=== PATIENT | female | born 1940 | race Caucasian/White ===

== ENCOUNTER 2019-02-25 12:07 | Emergency (ER) | payer MEDICARE, MEDICAID | END 2019-02-25 13:16 | disposition home or self-care (01) | LOC: MADERS 12:07 | DX: B02.9 Zoster without complications (principal); I49.9 Cardiac arrhythmia, unspecified; I48.91 Unspecified atrial fibrillation; Z79.899 Other long term (current) drug therapy; Z79.01 Long term (current) use of anticoagulants ==

== ENCOUNTER 2019-03-12 11:40 | Outpatient (CLI) | payer MEDICARE, MEDICAID | END 2019-03-12 11:41 | disposition home or self-care (01) | LOC: MADER/OP 11:40 | PROVIDERS: ATTEND Internal Medicine Infectious Disease | DX: E05.90 Thyrotoxicosis, unspecified without thyrotoxic crisis or storm (principal) | CPT/HCPCS: 36415; 84439; 84443; 84445 ==

== ENCOUNTER 2019-06-09 15:45 | Outpatient (CLI) | payer MEDICARE, MEDICAID ==
[2019-06-09 17:08] LABS: ALT (SGPT) 17 U/L (8-55); AST (SGOT) 22 U/L (5-34); Alkaline Phosphatase 108 U/L (40-110); Anion Gap 14 mmol/L (10-20); BUN (Urea Nitrogen) 16 mg/dL (9.8-20.1); Bilirubin, Total 0.9 mg/dL (0.2-1.2); Calc. Creatinine Clearance 0 mL/min (70-130); Calcium 9.2 mg/dL (7.8-10.44); Carbon Dioxide 28 mmol/L (23-31); Chloride 104 mmol/L (98-107); Estimated GFR-MDRD 60; Globulin 2.6 g/dL (2.4-3.5); Glucose 69 mg/dL (83-110); Potassium 4.2 mmol/L (3.5-5.1); Protein, Total 6.6 g/dL (6.0-8.3); Sodium 142 mmol/L (136-145)
[2019-06-09 17:25] LABS: Thyroid Stimulating Hormone 5.9037 uIU/mL (0.35-4.94)
[2019-06-09 18:44] LABS: Anisocytosis SLIGHT = 6-15 cells (100X) (0-5/hpf); Band 7 % (5-11); Eosinophils 1 % (0-10); Hemoglobin 12.9 g/dL (12.0-16.0); Hypochromia SLIGHT = 6-15 cells (100X) (0-5/hpf); Lymphocytes 15 % (21-51); MDiff Complete? YES; Mean Corpuscular HGB CONC 28.6 g/dL (32.0-36.0); Mean Corpuscular Hemoglobin 25.2 pg (27.0-31.0); Mean Corpuscular Volume 88.1 fL (78.0-98.0); Monocytes 5 % (0-10); Neutrophil 71 % (42-75); Platelet Count 422 thou/uL (130-400); Platelet Morphology Comment Appears Increased; RBC Distribution Width 19.9 % (11.5-14.5); Red Blood Cell (RBC) Count 5.11 mill/uL (4.20-5.40); Schistocytes SLIGHT = 2-5 cells (100X) (0-1/hpf); Target Cells SLIGHT = 2-5 cells (100X) (0-1/hpf); Tear Drops SLIGHT = 2-5 cells (100X) (0-1/hpf); White Blood Cell (WBC) Count 33.9 thou/uL (4.8-10.8)
[2019-06-09 22:28] LABS: Free T4 (Free Thyroxine) 0.8 ng/dL (0.70-1.48)
== END 2019-06-09 15:46 | disposition home or self-care (01) ==
LOC: MADLAB 15:45
PROVIDERS: ATTEND Internal Medicine Endocrinology, Diabetes & Metabolism
DX: E05.90 Thyrotoxicosis, unspecified without thyrotoxic crisis or storm (principal)
CPT/HCPCS: 36415; 80053; 84439; 84443; 84445; 85025

== ENCOUNTER 2019-09-22 12:37 | Emergency (ER) | payer MEDICARE, MEDICAID ==
--- NOTE | 2019-09-22 13:19 | CT ---
CT BRAIN NONCONTRAST: DATE: 09/22/2019 HISTORY: 79-year-old female status post acute head trauma from fall FINDINGS: There is no evidence of acute intra-axial or extra-axial hemorrhage. There is no midline shift or any other mass effect. There is no extra-axial fluid collection. There is no evidence of obstructive hydrocephalus. Calvarium is intact. IMPRESSION: 1. No acute intracranial findings. 2. Acute, traumatic small focal superficial soft tissue hematoma of the forehead. 3. Severe osteoarthrosis of bilateral temporomandibular joints.
--- NOTE | 2019-09-22 13:26 | RAD ---
Exam:2 views right hip HISTORY: Fall. Pain. COMPARISON: None FINDINGS: Calcification of the pelvis may represent phleboliths and/or calcified uterine leiomyomas Visualized bony pelvis and sacrum are intact Minimal vascular calcifications Mild loss of the right hip joint space height. Contour of the femoral head is maintained. No fracture . IMPRESSION: No fracture.
[2019-09-22 13:52] LABS: PTT 39.4 sec (22.9-36.1)
[2019-09-22 13:59] LABS: Anion Gap 15 mmol/L (10-20); BUN (Urea Nitrogen) 18 mg/dL (9.8-20.1); Calc. Creatinine Clearance 0 mL/min (70-130); Calcium 8.6 mg/dL (7.8-10.44); Carbon Dioxide 28 mmol/L (23-31); Chloride 106 mmol/L (98-107); Estimated GFR-MDRD 50; Glucose 92 mg/dL (83-110); Hemoglobin 13.4 g/dL (12.0-16.0); Mean Corpuscular Hemoglobin 25.8 pg (27.0-31.0); Mean Corpuscular Volume 88.8 fL (78.0-98.0); Platelet Count 564 thou/uL (130-400); Potassium 3.8 mmol/L (3.5-5.1); RBC Distribution Width 17.9 % (11.5-14.5); Red Blood Cell (RBC) Count 5.19 mill/uL (4.20-5.40); Sodium 145 mmol/L (136-145); White Blood Cell (WBC) Count 23.8 thou/uL (4.8-10.8)
[2019-09-22 14:00] LABS: Anisocytosis SLIGHT = 6-15 cells (100X) (0-5/hpf); Eosinophils 1 % (0-10); Lymphocytes 5 % (21-51); MDiff Complete? YES; Monocytes 2 % (0-10); Neutrophil 85 % (42-75); Platelet Morphology Comment Appears Increased; Polychromasia SLIGHT = 2-3 cells (100X) (0-2/hpf); Reactive Lymphocytes 7 % (0-10)
--- NOTE | 2019-09-22 14:50 | RAD ---
SINGLE VIEW OF THE PELVIS: 09/22/19 COMPARISON: None. HISTORY: Fall with pelvic pain. FINDINGS: Single view of the pelvis shows no evidence of acute fracture or dislocation. No significant degenera tive changes are seen. Calcification in the pelvis may represent calcified fibroids. Degenerative arnoldo nges are seen in the lumbar spine. IMPRESSION: No evidence of acute osseous abnormality. POS: [facility]
--- NOTE | 2019-09-22 14:54 | RAD ---
THREE VIEWS RIGHT FOOT: COMPARISON: None. HISTORY: Fall with right foot pain. FINDINGS: Three views right foot show an oblique fracture to the mid portion of the 5th metatarsal with overlyi ng soft tissue swelling. There is also a questionable lucency of the distal aspect of the 4th metata rsal. No other fractures or dislocations are seen. IMPRESSION: Fifth metatarsal fracture with possible 4th metatarsal fracture. POS: [facility]
== END 2019-09-22 14:35 | disposition home or self-care (01) ==
LOC: MADERS 12:37
DX: S92.341A Displaced fracture of fourth metatarsal bone, right foot, initial encounter for closed fracture (principal); S92.351A Displaced fracture of fifth metatarsal bone, right foot, initial encounter for closed fracture; S00.83XA Contusion of other part of head, initial encounter; S90.01XA Contusion of right ankle, initial encounter; S90.121A Contusion of right lesser toe(s) without damage to nail, initial encounter; I48.91 Unspecified atrial fibrillation; E78.5 Hyperlipidemia, unspecified; Z79.899 Other long term (current) drug therapy; W18.30XA Fall on same level, unspecified, initial encounter
CPT/HCPCS: 36415; 70450; 72170; 80048; 85025; 85610; 85730

== ENCOUNTER 2020-02-17 12:34 | Emergency (ER) | payer MEDICARE, MEDICAID ==
[2020-02-17 13:08] LABS: #Basophils 0.1 thou/uL (0.0-0.2); #Eosinphils 0.2 thou/uL (0.0-0.7); #Monocytes 0.7 thou/uL (0.11-0.59); #Neutrophils 4.1 thou/uL (1.40-6.50); %Basophils 1.1 % (0.0-1.0); %Eosinophils 3.5 % (0.0-10.0); %Lymphocytes 16.2 % (21.0-51.0); %Monocytes 12.2 % (0.0-10.0); Anisocytosis SLIGHT = 6-15 cells (100X) (0-5/hpf); Elliptocytes SLIGHT = 2-5 cells (100X) (0-1/hpf); Hemoglobin 12.3 g/dL (12.0-16.0); MDiff Complete? YES; Macrocytosis SLIGHT = 6-15 cells (100X) (0-5/hpf); Mean Corpuscular Hemoglobin 30.6 pg (27.0-31.0); Mean Corpuscular Volume 98.7 fL (78.0-98.0); Mean Platelet Volume 9.5 fL (7.4-10.4); Microcytosis SLIGHT = 6-15 cells (100X) (0-5/hpf); Platelet Count 132 thou/uL (130-400); Platelet Morphology Comment Appears Adequate; RBC Distribution Width 18.9 % (11.5-14.5); Red Blood Cell (RBC) Count 4.03 mill/uL (4.20-5.40); White Blood Cell (WBC) Count 6.1 thou/uL (4.8-10.8)
[2020-02-17 13:12] LABS: INR-International Normal Ratio 2.4; Prothrombin Time 26.3 sec (12.0-14.7)
[2020-02-17 13:13] LABS: PTT 36.6 sec (22.9-36.1)
[2020-02-17] MEDS ORDERED: Boostrix 0.5 ML (Tdap) VIAL ONE (13:22)
--- NOTE | 2020-02-17 13:22 | CT ---
EXAM: CT cervical spine PROVIDED CLINICAL HISTORY: Fall with face trauma COMPARISON: CT chest abdomen and pelvis 02/22/2019 FINDINGS: No evidence for fracture or traumatic subluxation. No prevertebral soft tissue swelling apparent. Gr oundglass nodules in the right lung apex are stable with respect to prior. Vascular calcifications are seen. Prominent bilateral TMJ arthrosis. IMPRESSION: No evidence for fracture or traumatic subluxation.
[2020-02-17 13:23] LABS: ALT (SGPT) 13 U/L (8-55); AST (SGOT) 21 U/L (5-34); Albumin 3.5 g/dL (3.4-4.8); Alkaline Phosphatase 88 U/L (40-110); Anion Gap 12 mmol/L (10-20); BUN (Urea Nitrogen) 14 mg/dL (9.8-20.1); Bilirubin, Total 1.2 mg/dL (0.2-1.2); Calc. Creatinine Clearance 0 mL/min (70-130); Calcium 8.1 mg/dL (7.8-10.44); Carbon Dioxide 34 mmol/L (23-31); Chloride 99 mmol/L (98-107); Estimated GFR-MDRD 63; Globulin 2.3 g/dL (2.4-3.5); Glucose 100 mg/dL (83-110); Potassium 3.4 mmol/L (3.5-5.1); Protein, Total 5.8 g/dL (6.0-8.3); Sodium 142 mmol/L (136-145)
--- NOTE | 2020-02-17 14:23 | CT ---
EXAM: FACIAL BONE CT SCAN WITHOUT IV CONTRAST: 02/17/20 HISTORY: Trauma to face following injury from a fall. FINDINGS: There is some focal right sided frontal scalp hematoma changes. The sinuses appear clear without evid ence for significant mucosal disease or air fluid level. The orbits, face including the zygomatic arc hes and mandible unremarkable without acute fracture or dislocation. There is fairly severe arthrosis changes of both temporomandibular joints with a somewhat anterior displaced very flattened deformed left mandibular head. IMPRESSION: No acute facial fracture or other significant acute process. POS: [facility]
[2020-02-17 14:29] LABS: Bilirubin Negative (Negative); Blood, Urine Moderate (Negative); Clarity Cloudy (Clear); Glucose, Urine (Dipstick) Negative (Negative); Ketone, Urine Negative (Negative); Leukocyte Small (Negative); Nitrite Positive (Negative); Protein, Urine (Dipstick) 30 mg/dL (Neg-Trace); Urobilinogen 0.2 mg/dL (Less than 2)
--- NOTE | 2020-02-17 14:36 | CT ---
EXAM: BRAIN CT WITHOUT IV CONTRAST: 02/17/20 HISTORY: Injury from a fall with face trauma. COMPARISON: 09/22/19. FINDINGS: There is bilateral atrophy and chronic white matter ischemic changes. Fairly prominent focal right fr ontal hematoma. Sinuses and mastoids are clear of acute process. No intracranial mass or bleed. There is [id number] asymmetry because of patient head position. IMPRESSION: Atrophy and chronic white matter ischemic changes. Right frontal scalp hematoma. No significant acute process. POS: [facility]
[2020-02-17 14:39] LABS: Bacteria/HPF 2+ HPF (None Seen); Mucous/LPF 2+ LPF (<2+); WBC/HPF Greater Than 50 HPF (0-3)
[2020-02-17] MEDS ORDERED: Nitrofurantoin Monohyd/M-Cryst 100 MG CAP ONE (14:48)
== END 2020-02-17 14:00 | disposition home or self-care (01) ==
LOC: MADERS 12:34
DX: S01.81XA Laceration without foreign body of other part of head, initial encounter (principal); S51.011A Laceration without foreign body of right elbow, initial encounter; N39.0 Urinary tract infection, site not specified; C92.10 Chronic myeloid leukemia, BCR/ABL-positive, not having achieved remission; F03.90 Unspecified dementia, unspecified severity, without behavioral disturbance, psychotic disturbance, mood disturbance, and anxiety; G20 Parkinson's disease; I48.91 Unspecified atrial fibrillation; I10 Essential (primary) hypertension; E78.5 Hyperlipidemia, unspecified; Z86.73 Personal history of transient ischemic attack (TIA), and cerebral infarction without residual deficits; W17.89XA Other fall from one level to another, initial encounter; Z79.01 Long term (current) use of anticoagulants; Z79.899 Other long term (current) drug therapy
CPT/HCPCS: 70450; 70486; 72125; 80053; 81003; 81015; 84484; 85025; 85610; 85730; 90471; 90715; 94760

== ENCOUNTER 2020-02-19 17:52 | Emergency (ER) | payer MEDICARE, MEDICAID ==
[2020-02-19] MEDS ORDERED: Sodium Chloride 0.9% 1,000 ML ONE (18:40)
[2020-02-19] MEDS ORDERED: Sodium Chloride 0.9% 100 ML ONE (18:40)
[2020-02-19] MEDS ORDERED: cefTRIAXone\\ROCEPHIN 2 GM VIAL ONE (18:40)
[2020-02-19 19:00] LABS: ALT (SGPT) 11 U/L (8-55); AST (SGOT) 16 U/L (5-34); Albumin 3.1 g/dL (3.4-4.8); Alkaline Phosphatase 73 U/L (40-110); Anion Gap 13 mmol/L (10-20); BUN (Urea Nitrogen) 13 mg/dL (9.8-20.1); Bilirubin, Total 1.8 mg/dL (0.2-1.2); CK (CPK) 105 U/L (29-168); Calc. Creatinine Clearance 0 mL/min (70-130); Calcium 7.8 mg/dL (7.8-10.44); Carbon Dioxide 32 mmol/L (23-31); Chloride 95 mmol/L (98-107); Estimated GFR-MDRD 68; Globulin 2.2 g/dL (2.4-3.5); Glucose 99 mg/dL (83-110); Potassium 3.3 mmol/L (3.5-5.1); Protein, Total 5.3 g/dL (6.0-8.3); Sodium 137 mmol/L (136-145)
[2020-02-19 19:16] LABS: #Basophils 0.1 thou/uL (0.0-0.2); #Eosinphils 0.2 thou/uL (0.0-0.7); #Lymphocytes 0.4 thou/uL (1.20-3.40); #Monocytes 0.7 thou/uL (0.11-0.59); #Neutrophils 6.7 thou/uL (1.40-6.50); %Basophils 0.8 % (0.0-1.0); %Eosinophils 2.6 % (0.0-10.0); %Lymphocytes 5.3 % (21.0-51.0); %Monocytes 8.7 % (0.0-10.0); %Neutrophils 82.6 % (42.0-75.0); Anisocytosis SLIGHT = 6-15 cells (100X) (0-5/hpf); Hemoglobin 11.2 g/dL (12.0-16.0); MDiff Complete? YES; Mean Corpuscular HGB CONC 31.5 g/dL (32.0-36.0); Mean Corpuscular Hemoglobin 30.9 pg (27.0-31.0); Mean Corpuscular Volume 97.8 fL (78.0-98.0); Mean Platelet Volume 8.3 fL (7.4-10.4); Platelet Count 105 thou/uL (130-400); Platelet Morphology Comment Appears Decreased; Polychromasia SLIGHT = 2-3 cells (100X) (0-2/hpf); RBC Distribution Width 18.6 % (11.5-14.5); Red Blood Cell (RBC) Count 3.64 mill/uL (4.20-5.40); White Blood Cell (WBC) Count 8.1 thou/uL (4.8-10.8)
[2020-02-19] MEDS ORDERED: Potassium Chloride 20 MEQ TAB ONE (19:24)
[2020-02-19 19:50] LABS: Bilirubin Negative (Negative); Blood, Urine Trace (Negative); Clarity Slightly Cloudy (Clear); Glucose, Urine (Dipstick) Negative (Negative); Ketone, Urine 40 mg/dL (Negative); Leukocyte Negative (Negative); Nitrite Negative (Negative); Protein, Urine (Dipstick) Trace mg/dL (Neg-Trace); Urobilinogen 0.2 mg/dL (Less than 2)
[2020-02-19 19:56] LABS: RBC/HPF 0-3 HPF (0-3); WBC/HPF 0-3 HPF (0-3)
[2020-02-19 19:57] LABS: Bacteria/HPF Rare-Few HPF (None Seen)
== END 2020-02-19 20:50 | disposition home or self-care (01) ==
LOC: MADERS 17:52
DX: N39.0 Urinary tract infection, site not specified (principal); R50.9 Fever, unspecified; S00.12XD Contusion of left eyelid and periocular area, subsequent encounter; S00.11XD Contusion of right eyelid and periocular area, subsequent encounter; G20 Parkinson's disease; I48.91 Unspecified atrial fibrillation; I10 Essential (primary) hypertension; E78.5 Hyperlipidemia, unspecified; Z86.73 Personal history of transient ischemic attack (TIA), and cerebral infarction without residual deficits; Z79.899 Other long term (current) drug therapy; W19.XXXD Unspecified fall, subsequent encounter
CPT/HCPCS: 36415; 80053; 81003; 81015; 82550; 83605; 85025; 87040; 87086; 96365; J0696; J3490; J7050